=== PATIENT | female | born 1995 | race Two or more races ===

== ENCOUNTER 2021-01-21 18:37 | Emergency (ER) | payer OTHER ==
[~2021-01-21] VITALS: Ht 165.1 cm; Wt 60.0 kg
--- NOTE | 2021-01-21 18:55 | NUR ---
PT PRESENT TO ER WITH PAIN IN UPPER ABDOMEN, PT STATES IT STARTED THIS MORNING, 01/21/21, AND HAS PROGRESSIVELY GOTTEN WORSE WITH NAUSEA AND VOMITTING. PT TAKES ANTIACIDS REGULARLY AT HOME FOR ULCERS. PT HOOKED UP TO ALL THE MONITORS AND RESTING ON THE GURNEY. ERP AT BEDSIDE.
[2021-01-21] MEDS ORDERED: MAALOX/HYOSCYAMINE/LIDOCAINE 45 ML BTL PO ONE (19:00)
[2021-01-21] MEDS ORDERED: FAMOTIDINE 20 MG TABLET PO ONE (19:00)
[2021-01-21] MEDS ORDERED: SODIUM CHLORIDE FLUSH 10ML SYR IVF ONE (19:00)
[2021-01-21] MEDS ORDERED: SODIUM CHLORIDE 0.9% 1,000ML IVBOLUS ONE (19:00)
[2021-01-21] MEDS ORDERED: MAALOX/HYOSCYAMINE/LIDOCAINE 45 ML BTL ONE (19:03)
[2021-01-21 19:16] LABS: BASOPHILS % (AUTO) 0 % (0-1); EOSINOPHILS % (AUTO) 0 % (1-7); LYMPHOCYTES % (AUTO) 7 % (22-44); MEAN CORPUSCULAR HEMOGLOBIN 29.7 pg (27.0-34.8); MEAN CORPUSCULAR HGB CONC 33.8 g/dL (32.4-35.8); MEAN PLATELET VOLUME 7.1 fL (7.4-10.4); MONOCYTES % (AUTO) 5 % (2-9); NEUTROPHILS % (AUTO) 88 % (42-75); PLATELET COUNT 279 x10^3/uL (130-400); RED BLOOD COUNT 4.89 x10^6/uL (3.82-5.3); RED CELL DISTRIBUTION WIDTH 12.4 % (9.6-15.2)
[2021-01-21 19:21] LABS: MD NO
--- NOTE | 2021-01-21 19:25 | NUR ---
PT LEFT FOR US
[2021-01-21 19:31] LABS: ALANINE AMINOTRANSFERASE 30 U/L (12-78); ALBUMIN 3.4 g/dL (3.4-5.0); ANION GAP 11 mmol/L (5-15); CALCIUM 8.5 mg/dL (8.5-10.1); CHLORIDE 106 mmol/L (98-107); CREATININE 0.65 mg/dL (0.55-1.02)
[2021-01-21 19:35] LABS: ALKALINE PHOSPHATASE 74 U/L (45-117); BILIRUBIN,TOTAL 0.4 mg/dL (0.2-1.0); TOTAL PROTEIN 7.2 g/dL (6.4-8.2)
--- NOTE | 2021-01-21 19:41 | NUR ---
PT BACK FROM US, HOOKED UP TO ALL THE MONITORS
[2021-01-21] MEDS ORDERED: ONDANSETRON 2MG/ML, 2ML ONE (19:48)
[2021-01-21] MEDS ORDERED: MORPHINE SULFATE 4 MG/ML, 1ML ONE ×2 (19:49→20:24)
--- NOTE | 2021-01-21 19:55 | NUR ---
PAIN MEDS GIVEN, PT VOMITTED RIGHT AFTER
[2021-01-21] MEDS ORDERED: METOCLOPRAMIDE 5 MG/ML, 2ML ONE (20:00)
[2021-01-21] MEDS ORDERED: MORPHINE SULFATE 4 MG/ML, 1ML IVPush ONE ×2 (20:00→21:30)
[2021-01-21] MEDS ORDERED: METOCLOPRAMIDE 5 MG/ML, 2ML IVPush ONE (20:00)
[2021-01-21] MEDS ORDERED: ONDANSETRON 2MG/ML, 2ML IVPush ONE (20:00)
[2021-01-21] MEDS ORDERED: DIPHENHYDRAMINE 50 MG/ML, 1ML ONE (20:24)
--- NOTE | 2021-01-21 20:48 | NUR ---
PT STATED THE MEDICATION IS NOW WORKING. PT IS RESTING COMFORTABLY ON GURNEY, DENIES NEEDS AT THIS TIME
[2021-01-21 20:49] LABS: TROPONIN I < 0.015 ng/mL (0.000-0.045)
[2021-01-21 21:08] VITALS: BP 112/74
[2021-01-21] MEDS ORDERED: DIPHENHYDRAMINE 50 MG/ML, 1ML IVPush ONE (21:30)
--- NOTE | 2021-01-21 22:07 | NUR ---
Patient given discharge instructions and they have confirmed that they understand the instructions. Patient ambulatory with steady gait.
== END 2021-01-21 22:10 | disposition home or self-care (01) ==
LOC: ED 21:57
DX: K29.00 Acute gastritis without bleeding (principal); R10.13 Epigastric pain; R11.2 Nausea with vomiting, unspecified; R94.31 Abnormal electrocardiogram [ECG] [EKG]
CPT/HCPCS: 36415; 76700; 80053; 83690; 84484; 84703; 85025; 93005; 96361; 96374; 96375; 96376; 99285; J1200; J2270; J2405; J2765; J7030